=== PATIENT | female | born 1965 | race Two or more races ===

== ENCOUNTER → 2018-08-13 | Day surgery (SDC) | payer OTHER ==
[~2018-08-13] MED LIST: ATORVASTATIN CA80 MG PO; DICL50TA4 PO; GLYCOPYRROLATE 1 MG/5 ML VIAL. ONE; IV RINGERS,LACTATED 1000ML 1,000 ML IV SCH; LIDOCAINE 1% PF 2 ML VIAL. ID PRN; LIDOCAINE 2% PF 5 ML VIAL. ONE; MIDAZOLAM HCL/PF 2 MG/2 ML VIAL. IV PRN; PROPOFOL 40 ML IV ONE; fentaNYL PF VIAL 100 MCG/2 ML VIAL IV PRN
[2018-08-13 10:30] VITALS: BP 122/80
--- NOTE | 2018-08-14 14:06 | PATHOLOGY ---
[facility] Accession Number: [id number] . 01 Material submitted: . PART A: cecum - CECAL POLYP PART B: colon - SIGMOID POLYP. Modifiers: sigmoid . 01 Clinical history: . Abnormal CT . 02 Diagnosis: A. Colon biopsies, cecal polyp: - Consistent with prominent mucosal fold, with mild active chronic inflammation. . B. Colon biopsies, sigmoid polyp: - Tubular adenoma. - Few mucosal-associated lymphoid aggregates. (JPM:yunier; 08/14/2018) QMS/08/14/2018 . 02 Comment: Sections of the cecal biopsy reveal segments of colonic mucosa consistent with prominent mucosal fold, showing mild chronic inflammation with a few scattered admixed neutrophils. There are no adenomatous changes or evidence of malignancy. . Sections of the sigmoid colon biopsy reveal a tubular adenoma and a few mucosal-associated lymphoid aggregates. There is no high-grade dysplasia or evidence of malignancy. (JPM:yunier; 08/14/2018) . 02 Electronically signed: . Andres Acosta MD, Pathologist NPI- [id number] . 01 Gross description: . A. The specimen is received in formalin, labeled "Yung, Sophia, cecal polyp" and consists of 2 fragments of santamaria tissue measuring 0.3 x 0.2 cm and 0.6 x 0.2 x 0.1 cm which are entirely submitted in A1. . B. The specimen is received in formalin, labeled "Yung, Sophia, sigmoid polyp" and consists of 3 fragments of santamaria tissue measuring 0.3 x 0.2 x 0.1 cm each which are submitted entirely in B1. (SDY; 08/13/2018) SYU/SYU . 02 Pathologist provided ICD-10: K52.9, D12.5 . 02 CPT . 935259, 791426 Specimen Comment: A courtesy copy of this report has been sent to Specimen Comment: [phone], . Specimen Comment: Report sent to Specimen Comment: Report sent to / DR PINA Performed at: [address] [facility], [place] [id number] MD Tha Hall MD Phone: [phone] [facility]formed [facility]: [facility] [address], [place] [id number] MD Andres Acosta MD Phone: [phone]
== END | disposition home or self-care (01) ==
LOC: SURG 08:15
PROVIDERS: ATTEND Internal Medicine Gastroenterology
DX: D12.5 Benign neoplasm of sigmoid colon (principal); K57.30 Diverticulosis of large intestine without perforation or abscess without bleeding; K63.5 Polyp of colon; K64.0 First degree hemorrhoids; K52.9 Noninfective gastroenteritis and colitis, unspecified; Z88.0 Allergy status to penicillin; Z79.899 Other long term (current) drug therapy
CPT/HCPCS: 45380; 88305; J2001; J2704; J3490